=== PATIENT | male | born 1970 | race Caucasian/White ===

== ENCOUNTER 2017-10-02 20:55 | Emergency (ER) | payer BC ==
[~2017-10-02] VITALS: Ht 180.3 cm; Wt 87.1 kg
[2017-10-02 21:01] VITALS: TEMP 36.3; Ht 180.3 cm; Wt 87.1 kg
[2017-10-02] MEDS ORDERED: DEXAMETHASONE SOD INJ 4 MG/ML 5 ML VIAL IM STA (21:23)
[2017-10-02] MEDS ORDERED: RANITIDINE HCL 150 MG TAB PO STA (21:23)
[2017-10-02] MEDS ORDERED: DiphenhydrAMINE HCL 50 MG/ML VIAL IM STA (21:23)
[2017-10-02] MEDS ORDERED: DEXAMETHASONE **PF** INJ 10 MG/ML VIAL IM STA (21:23)
[2017-10-02] MEDS ORDERED: METH4PAK PO (22:46)
[2017-10-02 22:52] VITALS: BP 127/69; PULSE 68; O2SAT 99
--- NOTE | 2017-10-02 23:29 | EMERGENCY ROOM VISIT NOTE ---
History First contact with patient: 21:12 Chief Complaint: RASH Stated Complaint: RASH, ALLERGIC REACTION History of Present Illness The patient is a 47 year old male who presents to the Emergency Room with complaints of an allergic reaction that started yesterday, and has progressively worsened. The patient reports that the rash initially was intermittent. It resolved last night, but woke up again this morning with a rash. The patient reports that he got a lot worse this evening after getting a shower. He denies any new topical products, foods or drinks. His reports that he did eat a new energy bar that he has not had before in the past. The patient does not believe that he had a reaction to this. The patient also denies any recent viral infections. He reports mild itching. He denies any lip /tongue/throat swelling, shortness of breath, palpitations or chest pain. Review of Systems HEENT: Denies dizziness, visual problems, hearing loss, tinnitus. Denies difficulty swallowing or oral lesions. PULMONARY: Denies cough, shortness of breath, sputum production or hemoptysis. CARDIOVASCULAR: Denies chest pain, palpitations, dyspnea on exertion, orthopnea or peripheral edema. GASTROINTESTINAL: Denies diarrhea, constipation, nausea, vomiting, or abdominal pain. GENITOURINARY: Denies dysuria, frequency, urgency or nocturia. NEUROLOGIC: Denies history of epilepsy, CVA, TIA or chronic headaches. MUSCULOSKELETAL: Denies history of joint tenderness/swelling. SKIN: Denies rashes or lesions. PSYCHIATRIC: Denies history of depression or mental illness. ENDOCRINE: Denies history of diabetes or thyroid disorders. Past Medical/Surgical History Medical Problems: (1) No significant past medical history Surgical Problems: (1) No history of previous surgery Family History No significant family history Social History Smoking Status: Never Smoker Smokeless Tobacco Use: Yes Alcohol Use: occasionally Marital Status: Occupation Status: employed Current/Historical Medications Scheduled Methylprednisolone (Medrol Dosepak), 0 PO DAILY Miscellaneous Medications None (Patient States No Home Meds) Physical Exam Vital Signs Date Time Temp Pulse Resp B/P (MAP) Pulse Ox O2 Delivery O2 Flow Rate FiO2 10/02/17 22:52 68 20 127/69 99 10/02/17 21:01 36.3 82 18 143/90 97 Room Air Physical Exam CONSTITUTIONAL: Healthy and well nourished. Alert and oriented X 3 with positive affect. Patient does not appear in any acute distress. HEENT: Normocephalic, atraumatic. Pupils equal, round and reactive. No obvious facial edema noted. NECK: Full active range of motion without discomfort. No JVD or carotid bruits. RESPIRATORY: Clear to auscultation bilaterally with no wheezing, crackles, rhonchi or stridor. CARDIOVASCULAR: Regular rate and rhythm with no murmurs, rubs or gallops. GASTROINTESTINAL: Bowel sounds present in all quadrants. Soft and nontender to palpation. MUSCULOSKELETAL: Full range of motion of all joints without discomfort. INTEGUMENTARY: No rash or other significant dermatologic conditions noted. NEUROLOGIC: Cranial nerves II-XII grossly intact. No focal neurologic deficits noted. Medical Decision & Procedures Medications Administered Medications (Trade) Dose Ordered Sig/Lana Route Start Time Stop Time Status Last Admin Dose Admin Ranitidine HCl (zANTac TAB) 150 mg ONE STAT PO 10/02/17 21:23 10/02/17 21:25 DC 10/02/17 21:42 150 MG Diphenhydramine HCl (Benadryl Inj) 50 mg ONE STAT IM 10/02/17 21:23 10/02/17 21:25 DC 10/02/17 21:42 50 MG Dexamethasone Sodium Phosphate (Dexamethasone Inj Pf) 10 mg ONE STAT IM 10/02/17 21:23 10/02/17 21:33 DC 10/02/17 21:42 10 MG ED Course Patient history and physical exam were performed. Nurse's notes were reviewed. Vital signs were reviewed, initially showing an elevated blood pressure 143/ 90. The patient does not appear in any acute distress. The patient did feel bad enough, however, to warrant additional medication management. The patient was offered intramuscular versus intravenous treatment, and elected injections. The patient was administered IM Benadryl and Decadron, along with Zantac 150 mg orally. The patient was observed for an hour with improvement of his symptoms. He felt well enough for discharge. The patient was encouraged to continue with Benadryl and Zantac for baseline antihistamine relief. He was provided a prescription for a Medrol Dosepak. He was encouraged to keep cool and avoid hot showers. Follow-up with family doctor if symptoms persist. Return to the emergency department for any worsening symptoms, especially symptoms consistent with angioedema, chest tightness, shortness of breath or palpitations. The patient was happy with plan of care, and voiced understanding of all discharge instructions. Repeat blood pressure was normal at the time of discharge. Medical Decision Exact etiology for this reaction is unknown. The family denies any new topical products or ingested foods/drinks. She has had no recent infection to suggest viral etiology. Examination does not show any other emergent findings to warrant hospitalist evaluation. Medication Reconcilliation Current Medication List: was personally reviewed by me Blood Pressure Screening Patient's blood pressure: Elevated blood pressure Blood pressure disposition: Elevated BP felt to be situational, Did not require urgent referral Impression Primary Impression: Hives of unknown origin Departure Information Dispostion Home / Self-Care Condition GOOD Prescriptions Methylprednisolone (MEDROL DOSEPAK) 4 Mg Alfred 0 PO DAILY, #1 PKT Prov: Manjinder Grider PA 10/02/17 Forms HOME CARE DOCUMENTATION FORM, IMPORTANT VISIT INFORMATION Patient Instructions My [facility], ED Urticaria Additional Instructions Take Medrol Dosepak as prescribed, next dose on Saturday. Benadryl 25-50 mg every 6 hrs PLUS Zantac 150 mg every 12 hrs. Suggest taking this for the next 48 hours. Intermittently apply an ice pack for relief of localized swelling and itch. Keep cool - no hot showers. Follow-up with your family doctor if symptoms persist. Return to the emergency department for any significantly worsening symptoms, including involvement of the face, mouth or throat, or if you develop any palpitations or difficulty breathing.
== END 2017-10-02 22:53 | disposition home or self-care (01) ==
LOC: C.EDB 20:57 → C.EDD 22:53
DX: L50.9 Urticaria, unspecified (principal); R03.0 Elevated blood-pressure reading, without diagnosis of hypertension